=== PATIENT | male | born 1955 | race Caucasian/White ===

== ENCOUNTER 2018-05-25 08:28 | Day surgery (SDC) | payer BC ==
[~2018-05-25 08:28] MED LIST: CEFAZOLIN/SWI 2gm 2 GM/20 ML SYR IV SCH
[2018-05-25] MEDS ORDERED: BUPIVACA 0.25%/EPI 0.0005% MDV 50 ML VIAL ONE (09:22)
[2018-05-25] MEDS ORDERED: CEFAZOLIN/SWI 1gm 1 GM/10 ML SYR ONE (09:28)
[2018-05-25] MEDS ORDERED: Ringers Lactate 1,000 ML IV ONE ×2 (09:28→12:08)
[2018-05-25] MEDS ORDERED: FENTANYL CITR 100 MCG/2 ML ONE (10:24)
[2018-05-25] MEDS ORDERED: PROPOFOL 200 MG/20 ML VIAL IV ONE ×2 (10:24→11:33)
[2018-05-25] MEDS ORDERED: LIDOCAINE 2% MPF 5 ML VIAL ONE (10:25)
[2018-05-25] MEDS ORDERED: ROCURONIUM 50 MG/5 ML VIAL IV ONE (10:25)
[2018-05-25] MEDS ORDERED: ONDANSETRON HCL 40 MG/20 ML VIAL ONE (10:26)
[2018-05-25] MEDS ORDERED: MIDAZOLAM HCL 2 MG/2 ML INJ ONE (10:26)
[2018-05-25] MEDS ORDERED: NEOSTIGMINE 1 MG/ML -5 ML SYRINGE ONE (10:46)
[2018-05-25] MEDS ORDERED: GLYCOPYRROLATE 0.2 MG/ML SYR ONE (10:46)
[2018-05-25] MEDS ORDERED: EPHEDRINE SULF 50 MG/10 ML SYR ONE (11:05)
--- NOTE | 2018-05-25 11:26 | P.OP ---
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
[2018-05-25] MEDS: MEPERIDINE HCL 25 MG/0.5 ML ONE ×2 (11:51→11:59)
[2018-05-25] MEDS ORDERED: MEPERIDINE HCL 25 MG/0.5 ML ONE (12:11)
[2018-05-25] MEDS ORDERED: HYDROCODONE/APAP 5/325 MG TAB ONE (13:12)
[2018-05-25] MEDS ORDERED: KETOROLAC 30 MG/ML INJ ONE (13:44)
[2018-05-25] MEDS ORDERED: IBUPROFEN 400 MG TAB ONE (13:44)
[2018-05-25 13:45] VITALS: TEMP 97
[2018-05-25 13:54] VITALS: BP 138/80; O2SAT 100
--- NOTE | 2018-05-25 22:45 | OP ---
Date of Procedure: 05/25/2018 Surgeon: Kenneth Castro MD, Postoperative Diagnoses: Umbilical hernia and right buttock skin lesion. Postoperative Diagnoses: Umbilical hernia and right buttock skin lesion. Procedure Performed: 1.Open repair of umbilical hernia with Bard Ventralex 4.3 cm mesh. 2.Excision of right buttock skin lesion of approximately 0.5 cm size. Anesthesia: General endotracheal plus local with 0.25% Marcaine. Estimated Blood Loss: Less than 1 cc. Specimen: 1.Hernia sac with preperitoneal fat. 2.Skin lesion as described. Findings: 1.1.5 cm umbilical hernia defect. 2.1.25 cm skin lesion of the right buttock region. Disposition: Transferred to recovery room in good condition. Procedure In Detail: Informed consent was obtained. The patient was brought to the operating room, prepped and draped in the usual sterile fashion. After adequate anesthesia was achieved, an infraumb ilical area was anesthetized with 0.25% Marcaine, sharply incised, and incision was carried down to t he umbilical hernia defect. The peritoneal tissue was grasped, elevated, and entered sharply, safely into the hernia sac. The preperitoneal fat was appreciated this time and dissected free from the he rnia sac. Hernia sac and fascial tissues were grasped, elevated, and the hernia sac was ligated at t his point. A finger sweep was performed to find that the patient had no omentum in this area. As raygoza ch, the small bowel was visualized in this region. He had a clean preperitoneal space, however, and the defect was approximately 1.5 cm. Therefore, I brought a 4.3 cm Bard Ventralex mesh, sized approp riately, and placed 2 stay sutures in the fascia and placed the Bard Ventralex ST mesh in the preperi toneal space. Using the sail, I distracted and held the tissue in close apposition with the abdomina l wall and finger swept the area to ensure no bowel contents were noted within here and the sutures w ere then tied down. The remaining peritoneum was then closed overlying the mesh in an interrupted fa shion with good approximation of tissues. The area was then copiously irrigated multiple times. The umbilicus was then resecured to the sail of the mesh to return the normal appearance of the umbilicu s. The area was copiously irrigated one last time. The deep dermal layer was then closed with a 3-0 Vicryl in an interrupted fashion and the skin was closed with 4-0 Monocryl in a running fashion. De rmabond was placed over the top. The patient tolerated the procedure well without evidence of compli cation. At this point, I then turned attention to the skin lesion in the right buttock area. The pa tient was in lithotomy position, and as such, I grasped and elevated the 1.25 to 1.5 cm skin lesion a nd excised this with a scalpel. I copiously irrigated the area multiple times to completely clear. Hemostasis was easily achieved with electrocautery. The area was copiously irrigated one last time, dried, and the defect was closed with 3 single interrupted 3-0 nylon sutures with good approximation of tissues. Sterile dressing was placed over top. The patient tolerated procedure well without evid ence of complication and transferred to the PACU in good condition. All counts were correct at the e nd of the case. OPAL/KIMBERLY Voice ID: [id number] Report ID: [id number]
== END 2018-05-25 14:25 | disposition home or self-care (01) ==
LOC: OR 08:28
PROVIDERS: ATTEND Surgery
PROC: 0WUF0JZ Supplement Abdominal Wall with Synthetic Substitute, Open Approach (ICD-10-PCS; principal; 2018-05-25 10:15)
PROC: 0HB9XZZ Excision of Perineum Skin, External Approach (ICD-10-PCS; 2018-05-25 10:15)
DX: K42.9 Umbilical hernia without obstruction or gangrene (principal); A63.0 Anogenital (venereal) warts; I10 Essential (primary) hypertension; Z80.1 Family history of malignant neoplasm of trachea, bronchus and lung; Z80.3 Family history of malignant neoplasm of breast; Z80.0 Family history of malignant neoplasm of digestive organs
CPT/HCPCS: 88302; 88305; J0690; J2175; J2250; J2405; J2704; J2710; J3010

== ENCOUNTER 2020-03-13 18:21 | Emergency (ER) | payer BC, OTHER ==
[2020-03-13] MEDS ORDERED: LIDOCAINE 1% W/EPI 1:100,000 MDV 20 ML VIAL ONE (19:41)
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
--- NOTE | 2020-03-13 19:57 | RAD REPORT ---
EXAM DESCRIPTION: RAD - Hand Left 3 View - 03/13/2020 7:49 pm CLINICAL HISTORY: PAIN Pain and swelling COMPARISON: No comparisons FINDINGS: Linear soft tissue laceration is seen adjacent to the second metacarpal head. No fracture or foreign body.
[2020-03-13] MEDS ORDERED: CEPHALEXIN 250 MG CAP ONE (20:01)
== END 2020-03-13 20:34 | disposition home or self-care (01) ==
LOC: ER 18:21
PROC: 0JQK0ZZ Repair Left Hand Subcutaneous Tissue and Fascia, Open Approach (ICD-10-PCS; principal; 2020-03-13)
DX: S61.412A Laceration without foreign body of left hand, initial encounter (principal); W26.0XXA Contact with knife, initial encounter; Y93.9 Activity, unspecified; Y92.009 Unspecified place in unspecified non-institutional (private) residence as the place of occurrence of the external cause
CPT/HCPCS: 99284